=== PATIENT | male | born 1960 | race Caucasian/White ===

== ENCOUNTER 2021-11-14 15:43 | Emergency (ER) | payer MEDICARE, MEDICAID ==
[~2021-11-14] VITALS: Ht 177.8 cm; Wt 82.0 kg
[~2021-11-14 15:43] MED LIST: CLON0.5T PO; KLONOPIN PO; SEROQUEL PO
[2021-11-14 15:47] VITALS: BP 128/62
[2021-11-14] MEDS ORDERED: IBUP-2029 MT (20:37)
== END 2021-11-14 21:07 | disposition home or self-care (01) ==
LOC: ER 15:43
DX: S63.611A Unspecified sprain of left index finger, initial encounter (principal); I10 Essential (primary) hypertension; E78.00 Pure hypercholesterolemia, unspecified; G40.909 Epilepsy, unspecified, not intractable, without status epilepticus; Z88.3 Allergy status to other anti-infective agents; X58.XXXA Exposure to other specified factors, initial encounter; Y93.61 Activity, american tackle football; Y92.89 Other specified places as the place of occurrence of the external cause; Y99.8 Other external cause status
CPT/HCPCS: 73140; 99283

== ENCOUNTER 2022-01-29 03:32 | Emergency (ER) | payer MEDICARE, MEDICAID ==
[~2022-01-29] VITALS: Ht 182.9 cm; Wt 132.0 kg
[~2022-01-29 03:32] MED LIST changes: +IBUP-2029 MT
[2022-01-29 04:41] LABS: BASOPHILS % 0.7 % (0.0-2.0); EOSINOPHILS % 3.5 % (0.0-5.0); HEMATOCRIT. 32.9 % (42.0-52.0); HEMOGLOBIN. 11.5 g/dL (14.0-18.0); LYMPHOCYTES % 27.6 % (20.0-50.0); MEAN CORPUSCULAR HEMOGLOBIN 32.6 pg (28.0-32.0); MEAN CORPUSCULAR VOLUME 93.4 fL (80.0-94.0); MEAN PLATELET VOLUME 7.2 fl (7.4-10.4); MONOCYTES % 10.7 % (2.0-8.0); NEUTROPHILS % 57.5 % (40.0-76.0); PLATELET 83 x1000/uL (130-400); RED BLOOD CELL COUNT 3.52 mill/uL (4.7-6.1); RED CELL DISTRIBUTION WIDTH 14.1 % (11.6-14.6)
[2022-01-29 04:50] LABS: CHLORIDE 106 mEq/L (98-107)
[2022-01-29 04:57] LABS: ETHANOL BLOOD < 10 mg/dL
[2022-01-29 05:06] LABS: CLARITY URINE CLEAR (CLEAR); COLOR URINE YELLOW (YELLOW); KETONES URINE NEGATIVE (NEGATIVE); LEUKOCYTE ESTERASE URINE NEGATIVE (NEGATIVE); NITRITE URINE NEGATIVE (NEGATIVE); OCCULT BLOOD URINE NEGATIVE (NEGATIVE); PROTEIN URINE NEGATIVE (NEGATIVE); SPECIFIC GRAVITY URINE 1.014 (1.005-1.030); UROBILINOGEN URINE 0.2 E.U./dL (0.2-1.0)
[2022-01-29 05:38] LABS: *AMPHETAMINES SCREEN URINE NEGATIVE (NEGATIVE); *BARBITURATES SCREEN URINE NEGATIVE (NEGATIVE); *BENZODIAZEPINES SCREEN URINE NEGATIVE (NEGATIVE); *COCAINE SCREEN URINE NEGATIVE (NEGATIVE); CANNABINOID URINE SCREEN NEGATIVE (NEGATIVE); METHADONE URINE SCREEN NEGATIVE (NEGATIVE); OPIATES URINE SCREEN NEGATIVE (NEGATIVE); PHENCYCLIDINE URINE SCREEN NEGATIVE (NEGATIVE)
[2022-01-29] MEDS ORDERED: SODIUM CHLORIDE 0.9% 1,000 ML IV ONE (06:15)
[2022-01-29] MEDS: RISPERIDONE 0.5MG TABLET PO SCH ×2 (11:19→21:57)
[2022-01-29] MEDS: BENZTROPINE MESYLATE 1MG TABLET PO SCH (21:57)
[2022-01-30] MEDS: RISPERIDONE 0.5MG TABLET PO SCH ×2 (09:09→21:52)
[2022-01-30] MEDS: BENZTROPINE MESYLATE 1MG TABLET PO SCH (21:52)
[2022-01-31 09:00] VITALS: BP 120/72
[2022-01-31] MEDS: RISPERIDONE 0.5MG TABLET PO SCH (09:38)
[2022-01-31] MEDS ORDERED: ALBU6.7H15 INH (11:11)
== END 2022-01-31 12:04 | disposition home or self-care (01) ==
LOC: ER 03:58
DX: R45.850 Homicidal ideations (principal); N17.9 Acute kidney failure, unspecified; F31.9 Bipolar disorder, unspecified; E78.00 Pure hypercholesterolemia, unspecified; I10 Essential (primary) hypertension; F20.9 Schizophrenia, unspecified; Z20.822 Contact with and (suspected) exposure to COVID-19
CPT/HCPCS: 36415; 80053; 80305; 80307; 80320; 80329; 81003; 82962; 85025; 93005; 96360; 96361; 99285; C9803; U0003; U0005; G0480